=== PATIENT | female | born 1950 | race Caucasian/White ===

== ENCOUNTER 2016-11-06 08:54 | Day surgery (SDC) | payer OTHER ==
[2016-11-06] VITALS (12 sets, daily range): BP systolic 113–141; BP diastolic 65–86; PULSE 52–74; RESP 13–25; Ht 154.9 cm; Wt 93.0 kg
[~2016-11-06] VITALS: Ht 154.9 cm; Wt 93.0 kg
[~2016-11-06 08:54] MED LIST: CEFAZOLIN 1 GM/50 ML (PMX) 50 ML IVPB SCH; LACTATED RINGER'S 1,000 ML IV* SCH
[2016-11-06] MEDS ORDERED: OMEP20CA16 PO (10:17)
[2016-11-06] MEDS ORDERED: GABA300C16 PO (10:17)
[2016-11-06] MEDS ORDERED: ROSU5TAB5 PO (10:17)
[2016-11-06] MEDS ORDERED: HYD25 PO (10:18)
[2016-11-06] MEDS ORDERED: CHOL400T10 PO (10:18)
--- NOTE | 2016-11-06 10:18 | RADRPT ---
PROCEDURE: XR Chest 1 View. CLINICAL INDICATION: Abnormal breath sounds, preop. TECHNIQUE: AP view of the chest was obtained. COMPARISON: None. FINDINGS: The heart size is within normal limits. Calcified atherosclerosis is noted in the aorta. Lungs are hyperexpanded. Mild interstitial prominence is seen in both lungs. Scattered atelectasis is noted in the bilateral lower lobes. No consolidations are identified. No pneumothorax is seen. Osseous s tructures are intact. IMPRESSION: Calcified atherosclerosis in the aorta. Hyperexpanded lungs with diffuse mild interstitial prominence in both lungs. Interstitial prominenc e could be chronic. Findings could reflect COPD. Scattered atelectasis in the bilateral lower lobes. RPTAT: AA .Elías Sharpe MD, MD Date Time Electronically viewed and signed by .Elías Sharpe MD, on 11/06/2016 10:18 .P/
[2016-11-06] MEDS ORDERED: LIDOCAINE 2% (SDV) 5 ML INJ ONE (11:35)
[2016-11-06] MEDS ORDERED: PROPOFOL 60 ML ONE (11:35)
[2016-11-06] MEDS ORDERED: FENTAnyl 50 MCG/ML VIAL ONE (11:37)
[2016-11-06] MEDS ORDERED: MIDAZOLAM 1 MG/ML 2 ML INJ ONE (11:37)
--- NOTE | 2016-11-06 11:43 | HPN ---
Date/Time of Note Date/Time of Note DATE: 11/06/16 TIME: 11:42 Interval H&P Admission Note Pt. seen H&P reviewed: No system changes MANISH NEVES November 06, 2016 11:43
[2016-11-06] MEDS ORDERED: BUPIVACAINE 0.5% (SDV) 30 ML INJ ONE (11:50)
[2016-11-06] MEDS ORDERED: LIDOCAINE 1% (STERILE-PAK) 30 ML INJ ONE (11:50)
[2016-11-06] MEDS ORDERED: DIPHENHYDRAMINE 50 MG INJ IV PRN (12:00)
[2016-11-06] MEDS ORDERED: ONDANSETRON 4 MG INJ IV PRN (12:00)
[2016-11-06] MEDS ORDERED: EPHEDrine SULFATE 50 MG/5 ML SYG IV PRN (12:00)
[2016-11-06] MEDS ORDERED: MEPERIDINE 25 MG INJ IV PRN (12:00)
[2016-11-06] MEDS ORDERED: HYDROmorphONE (0.2 MG/ML) 10ML SYG IV PRN ×3 (12:00)
[2016-11-06] MEDS ORDERED: hydrALAzine 20 MG INJ IV PRN (12:00)
[2016-11-06] MEDS ORDERED: FENTAnyl 50 MCG/ML VIAL IV PRN ×3 (12:00)
[2016-11-06] MEDS ORDERED: LABETALOL HCL 20MG INJ IV PRN (12:00)
[2016-11-06] MEDS ORDERED: LIDOCAINE 1% (MPF) 30 ML INJ INJ ONE (12:09)
[2016-11-06] MEDS ORDERED: BUPIVACAINE 0.5% (MPF) 30 ML INJ INJ ONE (12:09)
--- NOTE | 2016-11-06 14:04 | OPR ---
DATE OF OPERATION: 11/06/2016 SURGEON: Dr. Grigsby ANESTHESIA: Local plus MAC. PREOPERATIVE DIAGNOSIS: Left carpal tunnel syndrome. POSTOPERATIVE DIAGNOSIS: Left carpal tunnel syndrome. PROCEDURE: Left carpal tunnel release, open. OPERATIVE FINDINGS: Compression of median nerve at the carpal tunnel. INDICATION FOR PROCEDURE: A 65-year-old female with longstanding left carpal tunnel symptoms. She was seen in clinic and diagnosed with carpal tunnel syndrome and electrodiagnostic studies confirmed carpal tunnel syndrome. Since she had failed conservative management, we discussed surgical interv ention and she elected to proceed with surgical intervention, understanding the risks and benefits. DESCRIPTION OF PROCEDURE: The patient was seen in the preoperative area and all further questions were answered. Again, she gave informed consent, understanding the risks and benefits. She was gabino en to the operative suite and placed in supine position. Sedation was administered and 10 mL of 50: 50 of 0.5% Marcaine and 1% lidocaine was injected over the surgical site. This was done sterilely w ith alcohol prep. Tourniquet placed in the upper extremity and left upper extremity was prepped wit h ChloraPrep stick and draped in usual sterile fashion. Esmarch bandage was used to exsanguinate th e extremity and tourniquet inflated to 250 mmHg. A 2 cm incision at the base of the palm was utiliz ed with sharp dissection carried down through skin and subcutaneous tissue. The palmar aponeurosis was identified and was incised along its ulnar border. Retractors were deepened and the transverse carpal ligament was identified and was incised along its ulnar border approximately 3 mm radial to t he hook of the hamate. Curved hemostat was used to spread distally and the transverse carpal ligame nt was divided under direct visualization along its ulnar border. Attention was turned proximally a nd the antebrachial fascia was divided off the transverse carpal ligament with scissor dissection. The ligament was divided along its ulnar border under direct visualization. Wound was copiously irr igated and skin closed with 4-0 nylon. Xeroform was placed followed by sterile gauze, Webril, and a n Deni bandage. Tourniquet deflated after 11 minutes and patient was awakened from anesthesia. She was taken to the postoperative suite in stable condition and tolerated procedure well without compli cation. SPECIMENS: None. ESTIMATED BLOOD LOSS: 5 mL. SPONGE, INSTRUMENT AND NEEDLE COUNTS: Correct. TOURNIQUET TIME: 11 minutes. CONDITION ON DISCHARGE: Stable. Dictated By: MANISH LANCASTER/KRISTA Conf#: [id number] DID#: [id number]
== END 2016-11-06 13:45 | disposition home or self-care (01) ==
LOC: SDS 08:54
PROVIDERS: ATTEND Orthopaedic Surgery Hand Surgery
DX: G56.02 Carpal tunnel syndrome, left upper limb (principal); I10 Essential (primary) hypertension; E66.01 Morbid (severe) obesity due to excess calories; Z68.38 Body mass index [BMI] 38.0-38.9, adult
CPT/HCPCS: 64721; 71010; J2250; J3010

== ENCOUNTER 2016-11-20 13:35 | Day surgery (SDC) | payer OTHER ==
[2016-11-20] VITALS (12 sets, daily range): BP systolic 126–148; BP diastolic 66–91; PULSE 54–68; RESP 12–22; Ht 170.2 cm; Wt 94.0 kg
[~2016-11-20] VITALS: Ht 170.2 cm; Wt 94.0 kg
[~2016-11-20 13:35] MED LIST changes: +CEFAZOLIN 1 GM INJ ONE; -CEFAZOLIN 1 GM/50 ML (PMX) 50 ML IVPB SCH; +CHOL400T10 PO; +GABA300C16 PO; +HYD25 PO; -LACTATED RINGER'S 1,000 ML IV* SCH; +OMEP20CA16 PO; +ROSU5TAB5 PO
[2016-11-20] MEDS ORDERED: LIDOCAINE 0.5% (MDV) 50 ML INJ ONE (15:58)
[2016-11-20] MEDS ORDERED: BUPIVACAINE 0.5% (SDV) 30 ML INJ ONE (15:58)
[2016-11-20] MEDS ORDERED: METOCLOPRAMIDE 10 MG INJ IV PRN (16:00)
[2016-11-20] MEDS ORDERED: MEPERIDINE 25 MG INJ IV PRN ×2 (16:00→19:00)
[2016-11-20] MEDS ORDERED: DIPHENHYDRAMINE 50 MG INJ IV PRN ×2 (16:00→19:00)
[2016-11-20] MEDS ORDERED: morphine (1 MG/ML) 10ML SYRINGE IV PRN ×2 (16:00)
[2016-11-20] MEDS ORDERED: ONDANSETRON 4 MG INJ IV PRN ×2 (16:00→19:00)
[2016-11-20] MEDS ORDERED: MIDAZOLAM 1 MG/ML 2 ML INJ IV PRN ×2 (16:00→19:00)
[2016-11-20] MEDS ORDERED: HYDROmorphONE (0.2 MG/ML) 10ML SYG IV PRN ×5 (16:00→19:00)
[2016-11-20] MEDS ORDERED: LABETALOL HCL 20MG INJ IV PRN ×2 (16:00→19:00)
[2016-11-20] MEDS ORDERED: FENTAnyl 50 MCG/ML VIAL IV PRN ×5 (16:00→19:00)
[2016-11-20] MEDS ORDERED: hydrALAzine 20 MG INJ IV PRN ×2 (16:00→19:00)
[2016-11-20] MEDS ORDERED: EPHEDrine SULFATE 50 MG/5 ML SYG IV PRN ×2 (16:00→19:00)
--- NOTE | 2016-11-20 17:54 | HPN ---
Date/Time of Note Date/Time of Note DATE: 11/20/16 TIME: 17:53 Interval H&P Admission Note Pt. seen H&P reviewed: No system changes MANISH NEVES November 20, 2016 17:54
[2016-11-20] MEDS ORDERED: FENTAnyl 50 MCG/ML VIAL ONE (18:11)
[2016-11-20] MEDS ORDERED: PROPOFOL 100 ML ONE (18:11)
[2016-11-20] MEDS ORDERED: KETOROLAC 30 MG INJ ONE (18:11)
[2016-11-20] MEDS ORDERED: ONDANSETRON 4 MG INJ ONE (18:11)
[2016-11-20] MEDS ORDERED: DEXAMETHASONE 4 MG/ML 1 ML INJ ONE (18:11)
[2016-11-20] MEDS ORDERED: LIDOCAINE 100 MG SYRINGE ONE (18:11)
[2016-11-20] MEDS ORDERED: TRIMETHOBENZAMIDE 100 MG/ML VIAL IM PRN (19:00)
--- NOTE | 2016-11-20 20:07 | OPR ---
DATE OF OPERATION: 11/20/2016 SURGEON: Dr. Manish Grigsby. ANESTHESIA: Local MAC. PREOPERATIVE DIAGNOSIS: Right carpal tunnel syndrome. POSTOPERATIVE DIAGNOSIS: Right carpal tunnel syndrome. PROCEDURE: Right carpal tunnel release, open. OPERATIVE FINDINGS: Compression of median nerve at the carpal tunnel. INDICATION FOR PROCEDURE: A 65-year-old female with longstanding right carpal tunnel symptoms. She failed conservative management and elected to proceed with surgical intervention, understanding the risks and benefits. DESCRIPTION OF PROCEDURE: The patient was seen in the preoperative area and all further questions w ere answered. Again, she gave informed consent, understanding the risks and benefits. She was take n to the operative suite and placed in supine position. Sedation was administered and Ancef 2 grams given. Right upper extremity was prepped with ChloraPrep stick and draped in the usual sterile fas hion. Esmarch bandage was used to exsanguinate the extremity and tourniquet inflated to 250 mmHg. A 7 mL volume of 50/50 mixture of 0.5% Marcaine and 1% lidocaine was injected over the surgical site . A 2 cm incision at the base of the palm was utilized with sharp dissection carried down through s kin and subcutaneous tissue. The palmar aponeurosis was identified and was incised along its ulnar border. Retractors were deepened and the transverse carpal ligament was identified and was incised along its ulnar border approximately 3 mm radial to the hook of the . A Ragnell retractor was placed distally and the ligament was divided under direct visualization. Attention was turned proxi conchita and antebrachial fascia was divided off the transverse carpal ligament and the ligament was di vided along its ulnar border. Wound was copiously irrigated and skin closed with 4-0 nylon. Xerofo rm was placed over the wound followed by sterile gauze, Webril and an Deni bandage. Tourniquet defla eloy after 11 minutes and patient was awakened from anesthesia. She was taken the postoperative suit e in stable condition and tolerated the procedure well without complication. SPECIMENS: None. ESTIMATED BLOOD LOSS: 5 mL. SPONGE, INSTRUMENT, NEEDLE COUNTS: Correct. TOURNIQUET TIME: Eleven minutes. CONDITION ON DISCHARGE: Stable. Dictated By: MANISH LANCASTER/KRISTA Conf#: [id number] [facility]#: [id number]
== END 2016-11-20 20:02 | disposition home or self-care (01) ==
LOC: SDS 13:35
PROVIDERS: ATTEND Orthopaedic Surgery Hand Surgery
DX: G56.01 Carpal tunnel syndrome, right upper limb (principal); J44.9 Chronic obstructive pulmonary disease, unspecified; E66.9 Obesity, unspecified; Z68.32 Body mass index [BMI] 32.0-32.9, adult; Z87.891 Personal history of nicotine dependence
CPT/HCPCS: 64721; J0690; J2001; J2405; J3010; J1100; J1885